=== PATIENT | male | born 1980 | race Caucasian/White ===

== ENCOUNTER 2018-02-09 23:25 | Emergency (ER) | payer OTHER ==
--- OUTSIDE RECORDS SUMMARY | 2018-02-09 23:28 | XMS REPORT | Continuity of Care Document ---
:1980 Author Organization Interface Problems Problem Status Onset Classification Date Comments Source Date Reported SOB/CHEST Active [facility] PAIN 8 [place] CHEST PAIN Active [facility] 8 [place] INGESTION OF Active [facility] GLUE/ACCIDENT 2 [facility] Medications Medication Details Route Status Patient Ordering Order Source Instructions Provider Date hydromorphone 1 mg, Route: IVP No [facility] IVP, ONCE, Longer 012 Medical Priority: [facility] STAT, Start date: 07/22/11 23:09:00, Stop date: 07/22/11 23:09:00 Lortab 500 15 ml, PO, PO Active [facility] mg-7.5 mg/15 mL Q4H, PRN, 120 012 Medical oral elixir mL, for pain, Center Substitution Allowed, Maintenance, ELIX Magic Mouth Wash 5 ml, S&SPIT, S&SPIT Active [facility] (Lidocaine/Benad QID, PRN, 180 012 Medical ry/Maalox) 1:1:1 ml, pain, Center Substitution Allowed, Maintenance hydromorphone 1 mg, 0.5 mL, IVP No [facility] Route: IVP, Longer 012 Medical Drug form: Active [place] INJ, ONCE, Priority: STAT, Start date: 07/22/11 21:08:00, Stop date: 07/22/11 21:08:00 Cetacaine 2 spray, TOP No [facility] topical aerosol Route: TOP, Longer 012 Medical ONCE, Start Active [place] date: 07/22/11 21:08:00, Stop date: 07/22/11 21:08:00 lidocaine 4% 5 mL, Route: NEB No [facility] mucous membrane NEB, ONCE, Longer 012 Medical solution Start date: Active Center 07/22/11 21:08:00, Stop date: 07/22/11 21:08:00 Afrin 0.05% 2 spray, TOP No [facility] nasal spray Route: TOP, Longer 012 Medical ONCE, Start Active Center date: 07/22/11 21:08:00, Stop date: 07/22/11 21:08:00 Allergies, Adverse Reactions, Alerts Substance Category Reaction Severity Reaction Status Date Comments Source type Reported cephalosporins drug Allergy Active [facility] Latex drug Allergy Active [facility] Immunizations Immunization Date Given Site Status Last Updated Comments Source Results Order Name Results Value Reference Date Interpretation Comments Source Range Chest Chest Clinical Indication: - chest pain 01/31 - [facility] Pulmonary Pulmonary /2018 - [place] Embolism Embolism Comparison: None CTA CTA Read by: Enrico Paul MD Dictated Date/time: 01/31/18 02:49 TECHNIQUE: CTA of the thoracic aorta was performed with 100 ml Omnipaque intravenous contrast. Helical imaging performed apices to the lung bases. Multiplanar and 3-D maximum intensity projection angiographic reconstructions are reviewed. Electronically Signed by: Enrico Paul MD 01/31/18 02:[address] Radiation Dose DLP: 899.4 mGy-cm FINDINGS: THORACIC AORTA: The thoracic aorta is normal in caliber. There is no evidence of aneurysmal dilatation or aortic dissection. There is no significant atherosclerotic calcification of the aorta. The rig ht brachiocephalic, left common carotid, and left subclavian arteries are unremarkable. PULMONARY ARTERIES: Normal enhancement without intraluminal filling defect. MEDIASTINUM: There are no mediastinal masses or lymphadenopathy noted. LUNGS: There are no pulmonary nodules, pneumothoraces, infiltrates, or effusions. There are no pleural abnormalities. UPPER ABDOMEN: The visualized abdomen is unremarkable. MUSCULOSKELETAL: The visualized osseous structures are intact. IMPRESSION: 1. Unremarkable CTA of the chest. No evidence of pulmonary embolism or aortic dissection. SL: [id number] Ribs Ribs Clinical Indication: - right rib pain s/p fall, seen here one week ago for same 01/31 - [facility] unilateral unilateral - [place] 3 views w 3 views w Comparison: 01/22/2018 PA chest DX PA chest DX Read by: Enrico Paul MD Dictated Date/time: 01/31/18 00:41 FINDINGS: Electronically Signed by: Enrico Paul MD 01/31/18 00:42 FINAL REPORT Rib Series: Single frontal view of the chest demonstrates an unremarkable cardiac silhouette and aorta. Lung volumes are maintained. There are no focal infiltrates or effusions. The AP and oblique views of the right ribs show no definite rib fractures. The costovertebral junctions are unremarkable. There are no associated pleural effusions or pneumothorax. There are no underlying pulmonary contusions noted. If there is further concern, followup radiographs or bone scan may be performed for complete assessment. IMPRESSION: No evidence for rib fractures. [id number] Chest 2 Chest 2 Clinical Indication: Chest pain - 01/22 - [facility] DX views DX /2017 - [place] Comparison: None. Read by: Fatuma Toscano MD Dictated Date/time: 01/22/18 16:01 Electronically Signed by: Fatuma Toscano MD 01/22/18 16:01 FINAL REPORT TECHNIQUE: Frontal and lateral chest radiographs were performed. (2 views) FINDINGS: LUNGS: Normal lung volumes. No interstitial or airspace opacities. No pleural effusions or pneumothorax. HEART AND MEDIASTINUM: The heart is normal in size. The trachea is in the midline. The bilateral trice are unremarkable. OSSEOUS STRUCTURES: No acute abnormality seen. IMPRESSION: No acute cardiopulmonary disease. SL: [id number] Vital Signs Vital Sign Value Date Comments Source Height 208.28 cm 07/23/2011 [facility] Weight 81.818 07/23/2011 [facility] Encounters Location Location Encounter Encounter Reason Attending ADM DC Status Source Details Type Number For Provider Date Date Visit [facility] Emergency [id number] KAL 07/21 07/21 Active [facility] YIFANPALLY /2011 [facility] Procedures Procedure Code Date Perfomer Comments Source
--- OUTSIDE RECORDS SUMMARY | 2018-02-09 23:28 | XMS REPORT | CCD ---
:1980 Author Organization [facility] Care Team Providers Name Role Phone Reno Steele Consulting Provider Libby Zee Consulting Provider Raymond Mcgarry Referring Provider Unavailable Allergies, Adverse Reactions, Alerts Substance Reaction Status cephalosporins Active Latex Active Medications Medication Instructions Start Date End Date Status Magic Mouth Wash 5 ml, S&SPIT, QID, PRN, 07/22/2011 Ordered (Lidocaine/Benadry/Maalox) 180 ml, pain, 1:1:1 Substitution Allowed, Maintenance Lortab 500 mg-7.5 mg/15 mL 15 ml, PO, Q4H, PRN, 120 07/22/2011 Ordered oral elixir mL, for pain, Substitution Allowed, Maintenance, ELIX hydromorphone 1 mg, 0.5 mL, Route: 07/22/2011 07/22/2011 Completed IVP, Drug form: INJ, ONCE, Priority: STAT, Start date: 07/22/11 21:08:00, Stop date: 07/22/11 21:08:00 Cetacaine topical aerosol 2 spray, Route: TOP, 07/22/2011 07/22/2011 Discontinued ONCE, Start date: 07/22/11 21:08:00, Stop date: 07/22/11 21:08:00 lidocaine 4% mucous 5 mL, Route: NEB, ONCE, 07/22/2011 07/22/2011 Discontinued membrane solution Start date: 07/22/11 21:08:00, Stop date: 07/22/11 21:08:00 Afrin 0.05% nasal spray 2 spray, Route: TOP, 07/22/2011 07/22/2011 Discontinued ONCE, Start date: 07/22/11 21:08:00, Stop date: 04/07/12 21:08:00 hydromorphone 1 mg, Route: IVP, ONCE, 07/22/2011 07/22/2011 Completed Priority: STAT, Start date: 07/22/11 23:09:00, Stop date: 07/22/11 23:09:00 Vital Signs Most recent to oldest [Reference Range]: 1 Height 208.28 cm (07/22/2011 20:26:00) Weight 81.818 kg (07/22/2011 20:26:00)
[2018-02-10] MEDS ORDERED: KETOROLAC 30 MG/ML INJ ONE (00:26)
[2018-02-10] MEDS ORDERED: CLINDAMYCIN IV 150 MG/ML (4 mL) VIAL ONE (00:29)
--- NOTE | 2018-02-10 00:51 | EDPHYS ---
Physician Documentation [facility] Name: Eloy Borrero Age: 37 yrs Sex: Male : 1980 Arrival Date: 02/09/2018 Time: 23:28 Bed 17 Private MD: ED Physician Bonilla Viramontes HPI: 02/10 01:05 This 37 yrs old Male presents to ER via Ambulatory with complaints of BUMP tw4 BACK OF RT LEG. 01:05 The patient presents with cellulitis of the posterior aspect of right knee. tw4 Description: The affected area is small, approximately 3 cm(s), irregular, erythematous. Onset: The symptoms/episode began/occurred yesterday. Possible cause(s): unknown. Associated signs and symptoms: The patient has no apparent associated signs or symptoms. Modifying factors: the symptoms are alleviated by remaining still, the symptoms are aggravated by nothing. Severity of symptoms: At their worst the symptoms were moderate, in the emergency department the symptoms are unchanged. The patient has not experienced similar symptoms in the past. Historical: - Allergies: 02/09 23:43 CEPHALOSPORINS; tl3 23:43 Latex, Natural Rubber; tl3 23:43 Tomato (Solanum Lycopersicum); tl3 - Home Meds: 23:43 naproxen sodium 220 mg Oral tab 1 tab [Active]; tl3 - PMHx: 23:43 Anxiety; Depression; Seizures; tl3 - PSHx: 23:43 None; tl3 - Immunization history:: Adult Immunizations up to date. - Social history:: Smoking status: Patient/guardian denies using tobacco, never smoked. - Ebola Screening: : No symptoms or risks identified at this time. ROS: 02/10 01:05 Constitutional: Negative for fever, chills, and weight loss, Eyes: Negative for injury, tw4 pain, redness, and discharge, Cardiovascular: Negative for chest pain, palpitations, and edema, Respiratory: Negative for shortness of breath, cough, wheezing, and pleuritic chest pain, Abdomen/GI: Negative for abdominal pain, nausea, vomiting, diarrhea, and constipation, MS/Extremity: Negative for injury and deformity. Skin: Positive for cellulitis, erythema. Exam: 01:05 Constitutional: This is a well developed, well nourished patient who is awake, alert, tw4 and in no acute distress. Head/Face: Normocephalic, atraumatic. Chest/axilla: Normal chest wall appearance and motion. Nontender with no deformity. No lesions are appreciated. Cardiovascular: Regular rate and rhythm with a normal S1 and S2. No gallops, murmurs, or rubs. Normal PMI, no JVD. No pulse deficits. Respiratory: Lungs have equal breath sounds bilaterally, clear to auscultation and percussion. No rales, rhonchi or wheezes noted. No increased work of breathing, no retractions or nasal flaring. Abdomen/GI: Soft, non-tender, with normal bowel sounds. No distension or tympany. No guarding or rebound. No evidence of tenderness throughout. Back: No spinal tenderness. No costovertebral tenderness. Full range of motion. 01:05 Skin: cellulitis, that is mild, irregular, on the posterior aspect of right knee. 01:05 Skin: abscess, not appreciated, cellulitis. tw4 Vital Signs: 02/09 23:43 BP 124 / 84; Pulse 73; Resp 18; Temp 98.8(O); Pulse Ox 96% ; Weight 99.79 kg; Height 6 tl3 ft. 4 in. (193.04 cm); 02/10 00:40 BP 125 / 77; Pulse 71; Resp 18 S; Pulse Ox 96% on R/A; cc3 02/09 23:43 Body Mass Index 26.78 (99.79 kg, 193.04 cm) tl3 MDM: 00:04 Patient medically screened. tw4 01:05 Differential diagnosis: cellulitis, insect bite. Data reviewed: vital signs, nurses tw4 notes. 01:05 Counseling: I had a detailed discussion with the patient and/or guardian regarding: the tw4 historical points, exam findings, and any diagnostic results supporting the discharge/admit diagnosis. Special discussion: I discussed with the patient/guardian in detail that at this point there is no indication for admission to the hospital. It is understood, however, that if the symptoms persist or worsen the patient needs to return immediately for re-evaluation. ED course: Pt very belligerent to staff. Demanding that he receives narcotic medication for pain for his cellulitis. I instructed patient he would need a family member in order to receive narcotic medications. Pt agreed. As the nurse was in the process of administering the medications,pt refused. I instructed patient that he could receive his medications by mouth. Pt received Starrucca and Clindamycin for cellulitis. Pt states that he should have received something stronger for pain i.e Dilaudid, Morphine. I instructed the patient that his clinical condition did not warrant IV narcotic medications. 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 . Administered Medications: 00:43 Not Given (Patient Refused): TORadol 60 mg IM once cc3 00:46 Not Given (MD changed orders): Cleocin 900 mg IM once cc3 00:50 Drug: Clindamycin 300 mg Route: PO; cc3 01:05 Follow up: Response: No adverse reaction cc3 00:50 Drug: Starrucca 5 mg-325 mg 1 tabs Route: PO; cc3 01:05 Follow up: Response: No adverse reaction; Pain is decreased cc3 Disposition: 02/10/18 00:50 Discharged to Home. Impression: Cellulitis of right lower limb. - Condition is Stable. - Discharge Instructions: Cellulitis, Adult, Lymphangitis, Adult. - Prescriptions for Clindamycin HCl 300 mg Oral Capsule - take 1 capsule by ORAL route every 6 hours for 10 days; 40 capsule. Ibuprofen 800 mg Oral Tablet - take 1 tablet by ORAL route every 8 hours As needed take with food; 30 tablet. Tramadol 50 mg Oral Tablet - take 1 tablet by ORAL route every 8 hours as needed; 12 tablet. - Medication Reconciliation Form, Thank You Letter, Antibiotic Education, Prescription Opioid Use form. - Follow up: Private Physician; When: Upon discharge from the Emergency Department; Reason: Further diagnostic work-up, Recheck today's complaints, Continuance of care. - Problem is new. - Symptoms have improved. Signatures: Bonilla Viramontes MD MD tw4 Rupali Kathleen, RN RN tl3 Carol Castillo cc3 Corrections: (The following items were deleted from the chart) 01:03 00:50 02/10/2018 00:50 Discharged to Home. Impression: Cellulitis of right lower limb. cc3 Condition is Stable. Forms are Medication Reconciliation Form, Thank You Letter, Antibiotic Education, Prescription Opioid Use. Follow up: Private Physician; When: Upon discharge from the Emergency Department; Reason: Further diagnostic work-up, Recheck today's complaints, Continuance of care. Problem is new. Symptoms have improved. tw4
--- NOTE | 2018-02-10 00:51 | ER ---
Nurse's Notes [facility] Name: Eloy Borrero Age: 37 yrs Sex: Male : 1980 Arrival Date: 02/09/2018 Time: 23:28 Bed 17 Private MD: Diagnosis: Cellulitis of right lower limb Presentation: 02/09 23:40 Presenting complaint: Patient states: multiple lesions to right leg and foot, started tl3 yesterday and have become more painful. Transition of care: patient was not received from another setting of care. Onset of symptoms was February 08, 2018. Risk Assessment: Do you want to hurt yourself or someone else? Patient reports no desire to harm self or others. Initial Sepsis Screen: Does the patient meet any 2 criteria? No. Patient's initial sepsis screen is negative. Does the patient have a suspected source of infection? No. Patient's initial sepsis screen is negative. Care prior to arrival: None. 23:40 Method Of Arrival: Ambulatory tl3 23:40 Acuity: MARLEEN 4 tl3 Triage Assessment: 23:43 General: Appears uncomfortable, Behavior is calm, cooperative. Pain: Complains of pain tl3 in right leg. Historical: - Allergies: 23:43 CEPHALOSPORINS; tl3 23:43 Latex, Natural Rubber; tl3 23:43 Tomato (Solanum Lycopersicum); tl3 - Home Meds: 23:43 naproxen sodium 220 mg Oral tab 1 tab [Active]; tl3 - PMHx: 23:43 Anxiety; Depression; Seizures; tl3 - PSHx: 23:43 None; tl3 - Immunization history:: Adult Immunizations up to date. - Social history:: Smoking status: Patient/guardian denies using tobacco, never smoked. - Ebola Screening: : No symptoms or risks identified at this time. Screenin:50 Abuse screen: Denies threats or abuse. Denies injuries from another. Nutritional cc3 screening: No deficits noted. Tuberculosis screening: No symptoms or risk factors identified. Fall Risk Ambulatory Aid- None/Bed Rest/Nurse Assist (0 pts). Gait- Normal/Bed Rest/Wheelchair (0 pts) Mental Status- Oriented to own ability (0 pts). Assessment: 23:50 General: Appears in no apparent distress. comfortable. Pain: Complains of pain in right cc3 leg Quality of pain is described as aching, Pain began 1 day ago. Neuro: Level of Consciousness is awake, alert, obeys commands, Oriented to person, place, time, situation, Appropriate for age. Cardiovascular: Denies chest pain. Respiratory: Airway is patent Respiratory effort is even, unlabored, Respiratory pattern is regular, symmetrical. GI: Abdomen is round non-distended. : No signs and/or symptoms were reported regarding the genitourinary system. EENT: No signs and/or symptoms were reported regarding the EENT system. Derm: Reports pain that is 8 out of 10 on a pain scale. multiple lesions over the patient's bilateral lower limbs. Pain on the lesion at the back of his right knee. Musculoskeletal: Circulation, motion, and sensation intact. Range of motion: intact in all extremities. 02/10 00:35 Reassessment: Patient appears in no apparent distress at this time. Patient and/or cc3 family updated on plan of care and expected duration. Pain level reassessed. Patient is alert, oriented x 3, equal unlabored respirations, skin warm/dry/pink. Patient refused for the Toradol IM and refused for the antibiotic to be given intramuscularly because according to him intramuscular shots will inflict him more pain than what he is experiencing now and wants to speak with the in charge as he wants to vent out his upset feelings toward Dr. Viramontes that the physician is not paying attention to his case and so on and so forth. Informed charge nurse Patricia and she had a conversation with the patient. 00:57 Reassessment: DC instructions given to patient. Patient agree to follow up with PCP. ao Patient was unhappy to get pain pill by mouth. Patient was explained that Dr benjamin was not able to give IV medications and pain pill would help longer to relieve pain. Provided a prescription for Clindamycin, Tramadol and Ibuprofen 800 Mg. 01:34 Reassessment: After discharge I had a discussion with pt and family member (Colt) at fc length in triage room about how he (the pt) was upset and he felt as if he did not get the care he requested. I again looked at wound pt had come in with explained that wound was not drainable and needed antibiotics which he rec'd. Pt states that the PO antibiotics were causing him to have burning in his throat. I offered to take pt back to room and have dr see him again, pt refused. He states that the dr was uncaring and did not treat him appropriately. I explained that he rec'd antibiotics and pain medication as ordered. He states that he is going to call the board and I told him that he had the right to do so if he thought he needed to. He was given water for the burning and again offered to return to ER room. He refused and after talking to them for approx 30 minutes pt decided to leave and possibly get treatment from another facility. Vital Signs: 02/09 23:43 BP 124 / 84; Pulse 73; Resp 18; Temp 98.8(O); Pulse Ox 96% ; Weight 99.79 kg; Height 6 tl3 ft. 4 in. (193.04 cm); 02/10 00:40 BP 125 / 77; Pulse 71; Resp 18 S; Pulse Ox 96% on R/A; cc3 02/09 23:43 Body Mass Index 26.78 (99.79 kg, 193.04 cm) tl3 ED Course: 02/09 23:28 Patient arrived in ED. ag3 23:42 Triage completed. tl3 23:43 Arm band placed on right wrist. tl3 23:48 Carol Castillo is Primary Nurse. cc3 23:50 Patient has correct armband on for positive identification. Bed in low position. Call cc3 light in reach. Pulse ox on. NIBP on. 02/10 00:04 Bonilla Viramontes MD is Attending Physician. tw4 01:00 No provider procedures requiring assistance completed. Patient did not have IV access cc3 during this emergency room visit. Administered Medications: 00:43 Not Given (Patient Refused): TORadol 60 mg IM once cc3 00:46 Not Given (MD changed orders): Cleocin 900 mg IM once cc3 00:50 Drug: Clindamycin 300 mg Route: PO; cc3 01:05 Follow up: Response: No adverse reaction cc3 00:50 Drug: Burton 5 mg-325 mg 1 tabs Route: PO; cc3 01:05 Follow up: Response: No adverse reaction; Pain is decreased cc3 Outcome: 00:50 Discharge ordered by . tw4 01:00 Discharged to home ambulatory, with family. cc3 01:00 Condition: stable 01:00 Discharge instructions given to patient, family, Instructed on discharge instructions, follow up and referral plans. medication usage, Demonstrated understanding of instructions, follow-up care, medications, Prescriptions given X 3. 01:03 Patient left the ED. cc3 Signatures: Patricia Khan RN Logan Bo RN RN ao Wadley, Terrence, MD MD tw4 Rupali Kathleen RN RN tl3 Carol Castillo cc3 Ana Maria Flores ag3 Corrections: (The following items were deleted from the chart) 02/09 23:57 23:50 Pain: Complains of pain in right leg Quality of pain is described as aching, Pain cc3 began 1 week cc3 02/10 01:45 00:35 Reassessment: Patient appears in no apparent distress at this time. Patient cc3 and/or family updated on plan of care and expected duration. Pain level reassessed. Patient is alert, oriented x 3, equal unlabored respirations, skin warm/dry/pink. Patient refused for the Toradol IM and refused for the antibiotic to be given intramuscularly because according to him intramuscular shots will inflict him more pain than what he is experiencing now cc3 01:49 00:35 Reassessment: Patient appears in no apparent distress at this time. Patient cc3 and/or family updated on plan of care and expected duration. Pain level reassessed. Patient is alert, oriented x 3, equal unlabored respirations, skin warm/dry/pink. Patient refused for the Toradol IM and refused for the antibiotic to be given intramuscularly because according to him intramuscular shots will inflict him more pain than what he is experiencing now and wants to speak with the in charge as he wants to vent out his upset feelings towards Dr. Viramontes, informed charge nurse Patricia and she had a conversation with the patient. cc3 01:52 00:35 Reassessment: Patient appears in no apparent distress at this time. Patient cc3 and/or family updated on plan of care and expected duration. Pain level reassessed. Patient is alert, oriented x 3, equal unlabored respirations, skin warm/dry/pink. Patient refused for the Toradol IM and refused for the antibiotic to be given intramuscularly because according to him intramuscular shots will inflict him more pain than what he is experiencing now and wants to speak with the in charge as he wants to vent out his upset feelings toward Dr. Viramontes that the physician is not paying attention to his case, etc. Informed charge nurse Patricia and she had a conversation with the patient. cc3
[2018-02-10] MEDS ORDERED: HYDROCODONE/APAP 5/325 MG TAB ONE (00:57)
[2018-02-10] MEDS ORDERED: CLINDAMYCIN HCL 150 MG CAP ONE (00:58)
[2018-02-10 01:08] VITALS: BP 124/84; TEMP 98.8; O2SAT 96
[2018-02-10] MEDS ORDERED: FAMOTIDINE 20 MG TAB ONE (02:13)
[2018-02-10] MEDS ORDERED: MAGNES/ALUMIN/SIMET 30ML UCUP ONE (02:13)
[2018-02-10] MEDS ORDERED: ONDANSETRON 4 MG (ODT) TAB ONE (02:13)
== END 2018-02-10 01:03 | disposition home or self-care (01) ==
LOC: ER 23:25
DX: L03.115 Cellulitis of right lower limb (principal); Z91.040 Latex allergy status; Z91.018 Allergy to other foods; Z88.8 Allergy status to other drugs, medicaments and biological substances
CPT/HCPCS: 99283; S0077

== ENCOUNTER 2018-02-10 01:44 | Emergency (ER) | payer OTHER ==
--- OUTSIDE RECORDS SUMMARY | 2018-02-10 01:47 | XMS REPORT | Continuity of Care Document ---
:1980 Author Organization Interface Problems Problem Status Onset Classification Date Comments Source Date Reported SOB/CHEST Active [facility] PAIN 8 [place] CHEST PAIN Active [facility] [address] INGESTION OF Active [facility] GLUE/ACCIDENT 2 [facility] Medications Medication Details Route Status Patient Ordering Order Source Instructions Provider Date hydromorphone 1 mg, Route: IVP No [facility] IVP, ONCE, Longer 012 Medical Priority: [facility] STAT, Start date: 07/22/11 23:09:00, Stop date: 07/22/11 23:09:00 Lortab 500 15 ml, PO, PO Active [facility] mg-7.5 mg/15 mL Q4H, PRN, 120 012 Medical oral elixir mL, for pain, Center Substitution Allowed, Maintenance, ELIX Magic Mouth Wash 5 ml, S&SPIT, S&SPIT Active [facility] (Lidocaine/Benad QID, PRN, 180 012 Medical ry/Maalox) 1:1:1 ml, pain, Center Substitution Allowed, Maintenance hydromorphone 1 mg, 0.5 mL, IVP No [facility] Route: IVP, Longer 012 Medical Drug form: Active [place] [facility], ONCE, Priority: STAT, Start date: 07/22/11 21:08:00, Stop date: 07/22/11 21:08:00 Cetacaine 2 spray, TOP No [facility] topical aerosol Route: TOP, Longer 012 Medical ONCE, Start Active [place] date: 07/22/11 21:08:00, Stop date: 07/22/11 21:08:00 lidocaine 4% 5 mL, Route: NEB No [facility] mucous membrane NEB, ONCE, Longer 012 Medical solution Start date: Active Center 07/22/11 21:08:00, Stop date: 07/22/11 21:08:00 Afrin 0.05% 2 spray, TOP No [facility] nasal spray Route: TOP, Longer 012 Medical ONCE, Start Active Center date: 07/22/11 21:08:00, Stop date: 07/22/11 21:08:00 Allergies, Adverse Reactions, Alerts Substance Category Reaction Severity Reaction Status Date Comments Source type Reported cephalosporins drug Allergy Active [facility] Latex drug Allergy Active [facility] Immunizations Immunization Date Given Site Status Last Updated Comments Source Results Order Name Results Value Reference Date Interpretation Comments Source Range Chest Chest Clinical Indication: - chest pain 01/31 - [facility] Pulmonary Pulmonary /2018 - [place] Embolism Embolism [...] of pulmonary embolism or aortic dissection. SL: [id number] Ribs Ribs Clinical Indication: - right rib pain s/p fall, seen here one week ago for same 01/31 - [facility] unilateral unilateral - [place] 3 views w [...] assessment. IMPRESSION: No evidence for rib fractures. [id number] Chest 2 Chest 2 Clinical Indication: Chest pain - 01/22 - [facility] /[facility] - [address] Comparison: None. Read by: Fatuma Toscano MD [...] Date Comments Source Height 208.28 cm 07/23/2011 [facility] Weight 81.818 07/23/2011 [facility] Encounters Location Location Encounter Encounter Reason Attending ADM DC Status Source Details Type Number For Provider Date Date Visit [facility] Emergency [id number] KAL 07/21 07/21 Active [facility] YIFANPALLY /2011 [facility] Procedures Procedure Code Date Perfomer Comments Source
--- OUTSIDE RECORDS SUMMARY | 2018-02-10 01:47 | XMS REPORT | CCD ---
:1980 Author Organization [facility] Care Team Providers Name Role Phone [place] [...]
--- NOTE | 2018-02-10 02:07 | ER ---
Nurse's Notes [facility] Name: Eloy Borrero Age: 37 yrs Sex: Male : 1980 Arrival Date: 02/10/2018 Time: 01:45 Bed 14 Private MD: Diagnosis: Esophagitis, unspecified Presentation: 02/10 01:45 Presenting complaint: Patient states: that the medications he was given at the end of his last visit (tonight) are causing him to having burning to his throat and have caused him to vomit. States that he was going to try another facility but it was just to hard to try and go somewhere else. 01:47 Transition of care: patient was not received from another setting of care. Onset of symptoms was February 10, 2018 at 01:15. Risk Assessment: Do you want to hurt yourself or someone else? Patient reports no desire to harm self or others. Initial Sepsis Screen: Does the patient meet any 2 criteria? No. Patient's initial sepsis screen is negative. Does the patient have a suspected source of infection? No. Patient's initial sepsis screen is negative. Care prior to arrival: None. 01:47 Method Of Arrival: Ambulatory 01:47 Acuity: MARLEEN 4 fc Triage Assessment: 02:16 General: Appears in no apparent distress. comfortable, Behavior is. ao Historical: - Allergies: 01:50 Tomato (Solanum Lycopersicum); 01:50 Latex, Natural Rubber; 01:50 CEPHALOSPORINS; fc - Home Meds: 01:50 None [Active]; fc - PMHx: 01:50 Anxiety; Seizures; Depression; fc - PSHx: 01:50 None; fc - Immunization history:: Last tetanus immunization: up to date Flu vaccine is up to date. - Social history:: Smoking status: Patient/guardian denies using tobacco. - Ebola Screening: : Patient negative for fever greater than or equal to 101.5 degrees Fahrenheit, and additional compatible Ebola Virus Disease symptoms Patient denies exposure to infectious person Patient denies travel to an Ebola-affected area in the 21 days before illness onset. Screenin:52 Abuse screen: Denies threats or abuse. Nutritional screening: No deficits noted. fc Tuberculosis screening: No symptoms or risk factors identified. Fall Risk None identified. Assessment: 02:03 General: Appears in no apparent distress. comfortable, Behavior is calm, cooperative. ao Pain: Denies pain. Neuro: Level of Consciousness is awake, alert, obeys commands, Oriented to person, place, time, situation, Appropriate for age Moves all extremities. Full function Speech is normal, Facial symmetry appears normal. Cardiovascular: Capillary refill < 3 seconds Patient's skin is warm and dry. Respiratory: Airway is patent Respiratory effort is even, unlabored, Respiratory pattern is regular, symmetrical. GI: Abdomen is obese, Reports nausea, Vomiting x1 in parking lot after discharge. : No signs and/or symptoms were reported regarding the genitourinary system. EENT: No signs and/or symptoms were reported regarding the EENT system. Derm: No signs and/or symptoms reported regarding the dermatologic system. 02:06 Reassessment: Patient appears in no apparent distress at this time. DR Viramontes at ao bedside assessing patient accompanied by this nurse. Observed a full assessment by Dr Viramontes. patient questions had been addresses by Dr Viramontes. 02:13 Reassessment: DC instructions given to patient and family member. Patient agree with ao the POC and to follow up with PCP. Patient didn't have any questions at this time and agree with DC. Vital Signs: 01:50 BP 130 / 90; Pulse 64; Resp 20; Pulse Ox 97% ; Weight 97.52 kg (R); Height 6 ft. 4 in. fc (193.04 cm) (R); Pain 6/10; 01:55 Temp 98.9(O); fc 01:50 Body Mass Index 26.17 (97.52 kg, 193.04 cm) ED Course: 01:45 Patient arrived in ED. fc 01:49 Triage completed. fc 01:50 Arm band placed on Patient placed in an exam room, on a stretcher. fc 01:52 Patient has correct armband on for positive identification. Bed in low position. Call light in reach. 02:05 Bonilla Viramontes MD is Attending Physician. tw4 02:11 Logan Mai, ODILON is Primary Nurse. ao 02:19 No provider procedures requiring assistance completed. Patient did not have IV access ao during this emergency room visit. Administered Medications: 02:08 Drug: Zofran 4 mg Route: PO; ao 02:13 Follow up: Response: No adverse reaction ao 02:08 Drug: Pepcid 20 mg Route: PO; ao 02:12 Follow up: Response: Medication administered at discharge. ao 02:08 Drug: Maalox Suspension (200 mg-200 mg-20 mg/5 mL) 30 ml Route: PO; ao 02:12 Follow up: Response: Medication administered at discharge. ao Outcome: 02:07 Discharge ordered by . tw4 02:19 Discharged to home ambulatory. ao 02:19 Condition: stable 02:19 Discharge instructions given to patient, Instructed on discharge instructions, follow up and referral plans. Demonstrated understanding of instructions, follow-up care, medications, Prescriptions given X 2. 02:19 Patient left the ED. ao Signatures: Patricia Khan RN RN Logan Mai RN RN Bonilla Murphy MD MD tw4 Corrections: (The following items were deleted from the chart) 01:49 01:45 Presenting complaint: Patient states: that the medications he was given at the end of his last visit are causing him to having burning to his throat and feel as if he is going to vomit.
[2018-02-10 02:28] VITALS: BP 130/90; TEMP 98.9; O2SAT 97
--- NOTE | 2018-02-11 02:20 | EDPHYS ---
Physician Documentation [facility] Name: Eloy Borrero Age: 37 yrs Sex: Male : 1980 Arrival Date: 02/10/2018 Time: 01:45 Bed 14 Private MD: ED Physician Bonilla Viramontes HPI: 02/10 05:58 This 37 yrs old Male presents to ER via Ambulatory with complaints of burning tw4 in throat after taking antibiotics. 05:58 The patient presents with sore throat, dysphagia, of both solids and liquids. The tw4 patient describes throat pain as dry. Onset: The symptoms/episode began/occurred today. Severity of symptoms: At their worst the symptoms were mild, in the emergency department the symptoms are unchanged. Modifying factors: The symptoms are alleviated by nothing, the symptoms are aggravated by nothing. The patient has not experienced similar symptoms in the past. Historical: - Allergies: 01:50 Tomato (Solanum Lycopersicum); fc 01:50 Latex, Natural Rubber; fc 01:50 CEPHALOSPORINS; fc - Home Meds: 01:50 None [Active]; fc - PMHx: 01:50 Anxiety; Seizures; Depression; fc - PSHx: 01:50 None; fc - Immunization history:: Last tetanus immunization: up to date Flu vaccine is up to date. - Social history:: Smoking status: Patient/guardian denies using tobacco. - Ebola Screening: : Patient negative for fever greater than or equal to 101.5 degrees Fahrenheit, and additional compatible Ebola Virus Disease symptoms Patient denies exposure to infectious person Patient denies travel to an Ebola-affected area in the 21 days before illness onset. ROS: 05:58 Constitutional: Negative for fever, chills, and weight loss, Eyes: Negative for injury, tw4 pain, redness, and discharge, Cardiovascular: Negative for chest pain, palpitations, and edema, Respiratory: Negative for shortness of breath, cough, wheezing, and pleuritic chest pain, Abdomen/GI: Negative for abdominal pain, nausea, vomiting, diarrhea, and constipation, Back: Negative for injury and pain, MS/Extremity: Negative for injury and deformity, Skin: Negative for injury, rash, and discoloration. Exam: 05:58 Constitutional: This is a well developed, well nourished patient who is awake, alert, tw4 and in no acute distress. Head/Face: Normocephalic, atraumatic. Chest/axilla: Normal chest wall appearance and motion. Nontender with no deformity. No lesions are appreciated. Cardiovascular: Regular rate and rhythm with a normal S1 and S2. No gallops, murmurs, or rubs. Normal PMI, no JVD. No pulse deficits. Respiratory: Lungs have equal breath sounds bilaterally, clear to auscultation and percussion. No rales, rhonchi or wheezes noted. No increased work of breathing, no retractions or nasal flaring. Abdomen/GI: Soft, non-tender, with normal bowel sounds. No distension or tympany. No guarding or rebound. No evidence of tenderness throughout. MS/ Extremity: Pulses equal, no cyanosis. Neurovascular intact. Full, normal range of motion. Neuro: Awake and alert, GCS 15, oriented to person, place, time, and situation. Cranial nerves II-XII grossly intact. Motor strength 5/5 in all extremities. Sensory grossly intact. Cerebellar exam normal. Normal gait. Vital Signs: 01:50 BP 130 / 90; Pulse 64; Resp 20; Pulse Ox 97% ; Weight 97.52 kg (R); Height 6 ft. 4 in. fc (193.04 cm) (R); Pain 6/10; 01:55 Temp 98.9(O); fc 01:50 Body Mass Index 26.17 (97.52 kg, 193.04 cm) fc MDM: 02:05 Patient medically screened. tw4 05:58 Data reviewed: vital signs, nurses notes. Data interpreted: Pulse oximetry: tw4 Interpretation:. Counseling: I had a detailed discussion with the patient and/or guardian regarding: the historical points, exam findings, and any diagnostic results supporting the discharge/admit diagnosis. Special discussion: I discussed with the patient/guardian in detail that at this point there is no indication for admission to the hospital. It is understood, however, that if the symptoms persist or worsen the patient needs to return immediately for re-evaluation. Administered Medications: 02:08 Drug: Zofran 4 mg Route: PO; ao 02:13 Follow up: Response: No adverse reaction ao 02:08 Drug: Pepcid 20 mg Route: PO; ao 02:12 Follow up: Response: Medication administered at discharge. ao 02:08 Drug: Maalox Suspension (200 mg-200 mg-20 mg/5 mL) 30 ml Route: PO; ao 02:12 Follow up: Response: Medication administered at discharge. ao Disposition: 06:25 Chart complete. tw4 Disposition: 02/10/18 02:07 Discharged to Home. Impression: Esophagitis, unspecified. - Condition is Stable. - Discharge Instructions: Esophagitis. - Prescriptions for Pepcid 20 mg Oral Tablet - take 1 tablet by ORAL route every 12 hours for 10 days; 20 tablet. Zofran 4 mg Oral Tablet - take 1 tablet by ORAL route every 12 hours As needed; 6 tablet. - Medication Reconciliation Form, Thank You Letter, Antibiotic Education, Prescription Opioid Use form. - Follow up: Private Physician; When: Upon discharge from the Emergency Department; Reason: Further diagnostic work-up, Recheck today's complaints, Continuance of care. - Problem is new. - Symptoms have improved. Signatures: Patricia Khan RN RN Logan Mai RN RN ao Wadley, Terrence, MD MD tw4 Corrections: (The following items were deleted from the chart) 02:19 02:07 02/10/2018 02:07 Discharged to Home. Impression: Esophagitis, unspecified. ao Condition is Stable. Forms are Medication Reconciliation Form, Thank You Letter, Antibiotic Education, Prescription Opioid Use. Follow up: Private Physician; When: Upon discharge from the Emergency Department; Reason: Further diagnostic work-up, Recheck today's complaints, Continuance of care. Problem is new. Symptoms have improved. tw4
== END 2018-02-10 02:19 | disposition home or self-care (01) ==
LOC: ER 01:44
DX: K20.9 Esophagitis, unspecified (principal); Z91.018 Allergy to other foods; Z91.040 Latex allergy status; Z88.8 Allergy status to other drugs, medicaments and biological substances
CPT/HCPCS: 99283